=== PATIENT | female | born 1960 | race African-American/Black ===

== ENCOUNTER 2021-01-08 07:12 | Emergency (ER) | payer MEDICAID ==
[~2021-01-08] VITALS: Ht 172.7 cm; Wt 77.0 kg
[2021-01-08 07:55] VITALS: BP 116/72
[2021-01-08] MEDS ORDERED: ACETAMINOPHEN WITH CODEINE 300/30MG TABLET PO ONE (08:00)
[2021-01-08] MEDS ORDERED: T3 PO (09:25)
[2021-01-08] MEDS ORDERED: IBUP-2028 PO (09:27)
== END 2021-01-08 10:18 | disposition home or self-care (01) ==
LOC: ER 07:12
DX: S42.254A Nondisplaced fracture of greater tuberosity of right humerus, initial encounter for closed fracture (principal); E11.9 Type 2 diabetes mellitus without complications; I10 Essential (primary) hypertension; J45.909 Unspecified asthma, uncomplicated; Z88.6 Allergy status to analgesic agent; W01.0XXA Fall on same level from slipping, tripping and stumbling without subsequent striking against object, initial encounter; Y93.89 Activity, other specified; Y92.488 Other paved roadways as the place of occurrence of the external cause
CPT/HCPCS: 73030; 73060; 93005; 99284; A4565